=== PATIENT | male | born 2000 | race Caucasian/White ===

== ENCOUNTER 2024-11-25 06:25 | Emergency (ER) | payer MEDICAID ==
[~2024-11-25] VITALS: Ht 182.9 cm; Wt 104.5 kg
[2024-11-25] MEDS: GELATIN SPONGE,ABSORBABLE 50 MM TP ONE (08:06)
[2024-11-25 08:16] VITALS: BP 128/57; PULSE 76; RESP 16; TEMP 98.4; O2SAT 98
== END 2024-11-25 08:20 | disposition home or self-care (01) ==
LOC: EMS 06:28
DX: S31.21XA Laceration without foreign body of penis, initial encounter (principal); F12.90 Cannabis use, unspecified, uncomplicated; F17.210 Nicotine dependence, cigarettes, uncomplicated; X58.XXXA Exposure to other specified factors, initial encounter; Y93.89 Activity, other specified; Y92.89 Other specified places as the place of occurrence of the external cause; Y99.8 Other external cause status
CPT/HCPCS: 99282; Z7502